=== PATIENT | female | born 1980 | race Caucasian/White ===

== ENCOUNTER 2016-12-04 13:33 | Emergency (ER) | payer OTHER ==
[~2016-12-04] VITALS: Ht 157.5 cm; Wt 63.0 kg
[~2016-12-04 13:33] MED LIST: A/B OTIC 54 MG/15 ML AD; ALPRAZOLAM1 MG PO; BENTYL20 MG PO; CARAFATE1 G1 PO; CLONAZEPAM1 MG PO; FLONASE120 SPRAY/ NASB; MEDROL DOSEPAK1 PAC PO; MULTI VITAMINS1 TAB PO; OMNICEF300 MG PO; PERCOCET 5-3251 EACH PO; PRILOSEC 20MG C20 MG PO; ROBITUSSIN W/CO10 ML PO; SEROQUEL (MONO200 MG PO; VITAMIN B12250 MCG PO; VITAMIN D31000 I1 PO; ZANTAC300 MG PO; ZOFRAN ODT4 M1 SL; ZOFRAN4 M1 SL
--- NOTE | 2016-12-04 14:03 | ED GI/GU/ABDOMINAL COMPLAINT ---
History of Present Illness General Chief Complaint: Abdominal Pain/Flank Pain Stated Complaint: ABD PAIN Source: patient, old records Exam Limitations: no limitations Vital Signs & Intake/Output Vital Signs & Intake/Output Vital Signs Date Time Temp Pulse Resp B/P Pulse O2 O2 Flow FiO2 Ox Delivery Rate 12/04 1643 98.7 81 16 120/76 99 Room Air 12/04 1521 Room Air 12/04 1343 98.3 90 20 149/88 98 Room Air Room Air Allergies Coded Allergies: NO KNOWN ALLERGIES (05/20/13) Reconcile Medications Hydrocodone/Acetaminophen ([place] 5-325 Tablet) 5 MG-325 MG TABLET 1-2 TAB PO Q4-6 PRN PRN PAIN Lamotrigine 100 MG TABLET 1 TAB PO DAILY MENTAL HEALTH (Reported) Lorazepam 1 MG TABLET 1 TAB PO BID ANXIETY (Reported) Ondansetron (Zofran Odt) 4 MG TAB.RAPDIS 1 TAB SL TID PRN NAUSEA Pantoprazole Sodium 40 MG TABLET.DR 1 TAB PO BID GI (Reported) Quetiapine Fumarate 200 MG TABLET 1 TAB PO QPM SLEEP (Reported) Triage Note: PT TO ED WITH C/O LOW ABD PAIN AND BILATERAL BACK PAIN, C/O DIARRHEA, NAUSEA AND VOMITING X 2 WEEKS, HX PANCREATITIS 6 MONTHS AGO, "FEELS THE EXACT SAME WAY". Triage Nurses Notes Reviewed? yes ? N Is pt currently ? No Onset: Gradual Duration: week(s): (2) Timing: remote history Quality/Severity: sharpness, vomiting Severity Numbers: 7 Location: left upper quadrant, right upper quadrant Radiation: back Activities at Onset: none Prior Abdominal Problems: similar symptoms Past Sexual History: Unobtainable at this time HPI: Patient is a 36-year-old female with history of pancreatitis of unknown origin presenting to the emergency department complaining of upper abdominal pain, bilateral back pain that's been going on for the past 2 weeks. She has had associated nausea vomiting diarrhea. Patient has been having 3-4 episodes of diarrhea daily. She just recently over the past couple of days noted some blood in the stool. Denies any urinary symptoms. Able to keep water down, otherwise if she tries to eat she vomits. No fevers or chills. No recent travel. Denies sick contacts. No blood in the vomit. She has been taking Advil over-the- counter with no relief. (DAIJA GRAYSON) Past History Travel History Traveled to [place] past 21 day No Medical History Any Pertinent Medical History? 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 No (DAIJA GRAYSON) Review of Systems Review of Systems Constitutional: Reports: no symptoms. Comments Review of systems: See HPI, All other systems negative. Constitutional, no chills fever or weight loss HEENT: No visual changes no sore throat no congestion Cardiovascular: No chest pain ,palpitation , orthopnea or ankle swelling Skin, no jaundice no rashes Respiratory: No dyspnea cough sputum or hemoptysis GI: POS N/V/D : No dysuria No hematuria Muscle skeletal: no back pain, no neck pain, Neurologic: No numbness no confusion Psych: No stress anxiety or depression,. Heme/endocrine: No bruising no bleeding no polyuria or polydipsia Immunology: No splenectomy or history of AIDS (DAIJA GRAYSON) Physical Exam Physical Exam General Appearance: well developed/nourished, no apparent distress, alert, awake , comfortable Gastrointestinal: normal bowel sounds, soft Comments: Well-developed well-nourished person in no acute distress HEENT: Pupils equally round and reactive to light and accommodation. Nose is atraumatic. External auditory canal and Tympanic membranes clear. Pharynx normal. No swelling or edema. Neck: Supple, no lymphadenopathy, normal range of motion without pain or tenderness. Moist oral mucosa. Back:CVA TENDERNESS BILATERALLY. Full range of motion Cardiovascular: Regular rate and rhythms no murmurs rubs or gallops, normal JVP Respiratory: Chest nontender. No respiratory distress.breath sounds clear to auscultation bilaterally Abdomen: Soft, VERY TENDER TO PALPATION OVER UPPER QUADRANTS BILATERALLY, nondistended, no appreciable organomegaly. Normal bowel sounds. No ascites Extremity: No edema. They are De La Vega sign. Neuro: Alert oriented x3, motor sensory normal, cranial nerves II through XII grossly intact. Skin: No appreciable rash on exposed skin, skin is SLIGHTLY DIAPHORETIC Psych: Mood and affect is normal, memory and judgment is normal. Core Measures ACS in differential dx? No Severe Sepsis Present: No Septic Shock Present: No (FORREST VACA,DAIJA) Progress Differential Diagnosis: diverticulitis, gastritis, hepatitis Plan of Care: Orders Procedure Date/time Status URINE 12/04 140 Complete URINALYSIS 12/04 140 Complete LIPASE 12/04 140 Complete COMPREHENSIVE METABOLIC PANEL 12/04 1402 Complete CBC WITHOUT DIFFERENTIAL 12/04 1402 Complete AMYLASE 12/04 140 Complete Laboratory Tests 12/04/16 1455: Anion Gap 10, Estimated GFR > 60, BUN/Creatinine Ratio 18.6, Glucose 94, Calcium 9.9, Total Bilirubin 0.8, AST 21, ALT 44, Alkaline Phosphatase 55, Total Protein 7.3, Albumin 4.8, Globulin 2.5, Albumin/Globulin Ratio 1.9, Amylase 86, Lipase 178, CBC w Diff NO MAN DIFF REQ, RBC 4.41, MCV 89.7, MCH 30.8, RDW 13.6, MPV 6.4 L, Gran % 67.5, Lymphocytes % 26.5, Monocytes % 5.4, Eosinophils % 0.1, Basophils % 0.5, Absolute Granulocytes 6.3, Absolute Lymphocytes 2.5, Absolute Monocytes 0.5, Absolute Eosinophils 0, Absolute Basophils 0, PUBS MCHC 34.4 12/04/16 1450: Urine Color YEL, Urine Clarity CLEAR, Urine pH 6.0, Ur Specific [place] 1.025, Urine Protein NEG, Urine Ketones NEG, Urine Nitrite NEG, Urine Bilirubin NEG, Urine Urobilinogen 0.2, Ur Leukocyte Esterase NEG, Ur Microscopic EXAM NOT REQUIRED, Urine Hemoglobin NEG, Urine Glucose NEG, Urine Test NEGATIVE Microbiology 12/04 1418 STOOL: Clostridium difficile Toxin A & B - CAN Cancelled: Cancelled via OE: Patient Refused Diagnostic Imaging: Viewed by Me: CT Scan. Discussed w/RAD: CT Scan. Radiology Impression: PRESENT AGE: 36 PATIENT ACCOUNT NO: [id number] : 81 LOCATION: [facility] ([place]) ORDERING PHYSICIAN: DAIJA VACA SERVICE DATE: EXAM TYPE: CAT - CT ABD & PELVIS W IV CONTRAST EXAMINATION: CT ABDOMEN AND PELVIS WITH CONTRAST CLINICAL INFORMATION: Rule out biliary process. Rule out pyelonephritis. Upper abdominal pain. COMPARISON: CT abdomen and pelvis dated 04/01/2016. TECHNIQUE: Multidetector volumetric imaging was performed of the abdomen and pelvis before and after the IV administration of 94 mL of Optiray 320 intravenous contrast. Sagittal and coronal reformatted images were obtained on the technologist's workstation. DLP: 269.77 mGy-cm FINDINGS: LUNG BASES: The visualized lung bases are unremarkable. LIVER, GALLBLADDER, AND BILIARY TREE: The liver is normal in size, shape, and attenuation. No focal hepatic lesion or biliary ductal dilatation is present. The gallbladder is unremarkable with no evidence of radiopaque gallstones, gallbladder wall thickening, or obvious pericholecystic inflammatory changes. PANCREAS: Unremarkable. SPLEEN: Unremarkable. ADRENAL GLANDS: Unremarkable. KIDNEYS AND URETERS: The kidneys are normal in size. Both kidneys contain subcentimeter low- attenuation lesions which are too small for definitive characterization, but likely represent cysts. No hydronephrosis, hydroureter, or calculi seen. No perinephric stranding. BLADDER: Unremarkable. GASTROINTESTINAL TRACT: The small and large bowel are unremarkable. The appendix is not seen. However, there are no inflammatory changes within the right lower quadrant to indicate acute appendicitis. ABDOMINAL WALL: No significant hernia is appreciated. LYMPH NODES: No lymphadenopathy. VASCULAR: Unremarkable. PELVIC VISCERA: No adnexal mass. OSSEOUS STRUCTURES: Unremarkable. IMPRESSION: No acute abnormality is seen within the abdomen or pelvis. DICTATED BY: EVA DYKES MD DATE/TIME DICTATED: 12/04/161653 ADMINISTRATIVE COORDINATOR:AZUL DATE/TIME TRANSCRIBED:12/04/161653 CONFIDENTIAL, DO NOT COPY WITHOUT APPROPRIATE AUTHORIZATION. Initial ED EKG: none Comments: Patient feeling improved after Toradol and IV fluids. Patient informed of all imaging results and laboratory results. No signs of UTI or pyelonephritis. Patient has been afebrile. This could be a virus or gastritis or stomach ulcer. Patient will follow with GI symptoms persist. Educated avoiding NSAIDs and taking omeprazole [id number]. Also given something to help with pain in the meantime. Patient nontoxic. Etiology of abdominal pain unclear at this time. Educated on use of clear liquid diet for the next 24-48 hours. She'll return for worsening symptoms or concerns. (DAIJA GRAYSON) Departure Departure Time of Disposition: 1725 Disposition: HOME OR SELF CARE Condition: Stable Clinical Impression Primary Impression: Back pain Qualifiers: Back pain location: back pain in unspecified location Chronicity: acute Back pain laterality: unspecified Qualified Code: M54.9 - Dorsalgia, unspecified Secondary Impressions: Abdominal pain Qualifiers: Abdominal location: unspecified location Qualified Code: R10.9 - Unspecified abdominal pain Diarrhea Qualifiers: Diarrhea type: unspecified type Qualified Code: R19.7 - Diarrhea, unspecified Referrals: JG CARMEN,NATALIIA Chahal (PCP/Family) Additional Instructions: Follow-up with your primary care physician call to make an appointment. Still drop off a stool sample at the lab, use a slip that was given to by her primary care physician. Increase fluids. Avoid heavy lifting. Take Zofran as prescribed for nausea. Take Vicodin as prescribed for pain. Return for worsening symptoms or concerns. Departure Forms: Customer Survey General Discharge Information Prescriptions: Current Visit Scripts Hydrocodone/Acetaminophen ([place] 5-325 Tablet) 1-2 TAB PO Q4-6 PRN PRN PAIN #10 TAB Ondansetron (Zofran Odt) 1 TAB SL TID PRN NAUSEA #8 TAB (DAIJA GRAYSON) PA/TALENT MANAGEMENT SPECIALIST Co-Sign Statement Statement: ED Attending supervision documentation- [] I saw and evaluated the patient. I have also reviewed all the pertinent lab results and diagnostic results. I agree with the findings and the plan of care as documented in the PA's/TALENT MANAGEMENT SPECIALIST's documentation. [X] I have reviewed the ED Record and agree with the PA's/TALENT MANAGEMENT SPECIALIST's documentation. [] Additions or exceptions (if any) to the PAs/TALENT MANAGEMENT SPECIALIST's note and plan are summarized below: [] (SIVAN CARMEN,LAUREN Cedeno)
[2016-12-04] MEDS ORDERED: PANTOPRAZOLE SO40 M1 PO (14:39)
[2016-12-04] MEDS ORDERED: LAMOTRIGINE100 M2 PO (14:39)
[2016-12-04] MEDS ORDERED: QUETIAPINE FUM200 M1 PO (14:40)
[2016-12-04] MEDS ORDERED: LORAZEPAM1 M1 PO (14:40)
[2016-12-04 15:03] LABS: ABSOLUTE BASOPHIL COUNT 0 /CUMM (0.0-0.2); ABSOLUTE EOSINOPHIL COUNT 0 /CUMM (0.0-0.7); ABSOLUTE GRANULOCYTE CT 6.3 /CUMM (1.4-6.5); ABSOLUTE LYMPH COUNT 2.5 /CUMM (1.2-3.4); ABSOLUTE MONOCYTE COUNT 0.5 /CUMM (0.10-0.60); BASOPHIL % 0.5 % (0.0-2.0); EOSINOPHIL % 0.1 % (0-5); GRANULOCYTE % 67.5 % (42.2-75.2); HEMATOCRIT 39.6 % (37-47); MEAN CORPUSCULAR HGB 30.8 PG (27.0-31.0); MEAN CORPUSCULAR HGB CONC 34.4 G/DL (33.0-37.0); MEAN CORPUSCULAR VOLUME 89.7 FL (81.0-99.0); MEAN PLATELET VOLUME 6.4 FL (7.4-10.4); PLATELET COUNT 388 /CUMM (130-400); RBC DISTRIBUTION WIDTH 13.6 % (11.5-14.5); RED BLOOD CELL CT 4.41 /CUMM (4.20-5.40); WHITE BLOOD CELL COUNT 9.4 /CUMM (4.8-10.8)
[2016-12-04 16:43] VITALS: BP 120/76
--- NOTE | 2016-12-04 17:08 | CT SCAN REPORT ---
EXAMINATION: CT ABDOMEN AND PELVIS WITH CONTRAST CLINICAL INFORMATION: Rule out biliary process. Rule out pyelonephritis. Upper abdominal pain. COMPARISON: CT abdomen and pelvis dated 04/01/2016. TECHNIQUE: Multidetector volumetric imaging was performed of the abdomen and pelvis before and after the IV administration of 94 mL of Optiray 320 intravenous contrast. Sagittal and coronal reformatted images were obtained on the technologist's workstation. DLP: 269.77 mGy-cm FINDINGS: LUNG BASES: The visualized lung bases are unremarkable. LIVER, GALLBLADDER, AND BILIARY TREE: The liver is normal in size, shape, and attenuation. No focal hepatic lesion or biliary ductal dilatation is present. The gallbladder is unremarkable with no evidence of radiopaque gallstones, gallbladder wall thickening, or obvious pericholecystic inflammatory changes. PANCREAS: Unremarkable. SPLEEN: Unremarkable. ADRENAL GLANDS: Unremarkable. KIDNEYS AND URETERS: The kidneys are normal in size. Both kidneys contain subcentimeter low-attenuation lesions which are too small for definitive characterization, but likely represent cysts. No hydronephrosis, hydroureter, or calculi seen. No perinephric stranding. BLADDER: Unremarkable. GASTROINTESTINAL TRACT: The small and large bowel are unremarkable. The appendix is not seen. However, there are no inflammatory changes within the right lower quadrant to indicate acute appendicitis. ABDOMINAL WALL: No significant hernia is appreciated. LYMPH NODES: No lymphadenopathy. VASCULAR: Unremarkable. PELVIC VISCERA: No adnexal mass. OSSEOUS STRUCTURES: Unremarkable. IMPRESSION: No acute abnormality is seen within the abdomen or pelvis.
[2016-12-04] MEDS ORDERED: NORCO 5-325 TA1 EACH PO (17:28)
[2016-12-04] MEDS ORDERED: ZOFRAN ODT4 M1 SL (17:28)
== END 2016-12-04 17:36 ==
LOC: ERH 13:33
PROVIDERS: Physician Assistant
DX: M54.9 Dorsalgia, unspecified (principal); R10.11 Right upper quadrant pain; R10.12 Left upper quadrant pain; R19.7 Diarrhea, unspecified
CPT/HCPCS: 74177; 81003; 81025; 87045; 96361; 96374; 96375; J1885; J2405; J2765

== ENCOUNTER 2017-10-02 | Emergency (ER) | payer OTHER ==
[~2017-10-02] MED LIST changes: +IMODIUM A-D2 M1 PO; +LAMOTRIGINE100 M2 PO; +LORAZEPAM1 M1 PO; +Magic mouthwash PO; +NORCO 5-325 TA1 EACH PO; +PANTOPRAZOLE SO40 M1 PO; +QUETIAPINE FUM200 M1 PO; +REGLAN10 M1 PO
[2017-10-02 00:59] VITALS: BP 135/89
[2017-10-02] MEDS ORDERED: PEPCID20 M1 PO (01:10)
--- NOTE | 2017-10-02 01:10 | ED GI/GU/ABDOMINAL COMPLAINT ---
History of Present Illness General Chief Complaint: General Adult Stated Complaint: COUGH, HEART BURN Source: patient, old records Exam Limitations: no limitations Vital Signs & Intake/Output Vital Signs & Intake/Output Vital Signs Date Time Temp Pulse Resp B/P B/P Pulse O2 O2 Flow FiO2 Mean Ox Delivery Rate 10/02 0059 98.5 67 20 135/89 Allergies Coded Allergies: No Known Allergies (09/06/17) Reconcile Medications Famotidine (Pepcid) 20 MG TABLET 1 TAB PO BID GASTRIITS Loperamide HCl (Imodium A-D) 2 MG TABLET 0 PO SEE ADMIN CRITERIA PRN diarrhea 1 tab after each loose stool up to 7 per day Lorazepam 1 MG TABLET 1 TAB PO BID ANXIETY (Reported) [Magic mouthwash] 10 ML PO Q4P PRN throat pain 1:1:1 lidocaine:benadryl;maalox Metoclopramide HCl (Reglan) 10 MG TABLET 1 TAB PO 4 TIMES/DAY PRN nausea/ vomiting 30 minutes before meals and bedtime Ondansetron (Zofran Odt) 4 MG TAB.RAPDIS 1 TAB SL TID PRN nausea Oxycodone HCl/Acetaminophen (Percocet 5-325 MG Tablet) 5 MG-325 MG TABLET 1 TAB PO BID BREAKTHROUGH PAIN Triage Note: PER PT SEEN HERE FOR THROAT PROBLEMS AND WENT TO HAVE AN MRI BUT CANNOT GET RESULTS CONT WITH CHEST PAIN,CT SHOWED AN ISSUE WITH MY MEDIASTIMUN AWAKE EVERY AM WITH HEARTBURN Triage Nurses Notes Reviewed? yes ? N Is pt currently ? No HPI: Patient presents the emergency room with continued complaints of heartburn that wakes her up every night. Patient states the pain gets so bad and she throws up. Patient also states that she has been having intermittent diarrhea. Patient has been taking the medications prescribed to her but have not been helping. Patient has been seen by Dr. Tucker in the past and had a colonoscopy as well as an endoscopy 2 years ago. Patient also recently had an MRI or something abnormal on her sternum. Patient states that she has been: Her doctor for 3 days but has not been a call back to discuss the results yet. She describes the pain as a burning sensation which is substernal. It radiates up towards her throat. His worse with laying down. There are no aggravating or mitigating factors. One is present the pain is 10 out of 10. Past History Travel History Traveled to [place] past 21 day No Medical History Any Pertinent Medical History? 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 No Review of Systems Review of Systems Constitutional: Reports: no symptoms. EENTM: Reports: no symptoms. Respiratory: Reports: no symptoms. Cardiovascular: Reports: no symptoms. GI: Reports: see HPI, diarrhea, vomiting. Genitourinary: Reports: no symptoms. Musculoskeletal: Reports: no symptoms. Skin: Reports: no symptoms. Neurological/Psychological: Reports: no symptoms. Hematologic/Endocrine: Reports: no symptoms. Immunologic/Allergic: Reports: no symptoms. All Other Systems: Reviewed and Negative Physical Exam Physical Exam General Appearance: well developed/nourished, alert, awake, anxious, mild distress Head: atraumatic, normal appearance Eyes: Bilateral: PERRL, EOMI. Ears, Nose, Throat, Mouth: hearing grossly normal, moist mucous membrane Neck: normal inspection, supple, full range of motion Respiratory: normal breath sounds, chest non-tender, no respiratory distress, lungs clear Cardiovascular: regular rate/rhythm, normal peripheral pulses Gastrointestinal: normal bowel sounds, soft, non-tender, no organomegaly Back: normal inspection, normal range of motion Extremities: normal range of motion Neurologic/Psych: no motor/sensory deficits, awake, alert, oriented x 3, normal gait, normal mood/affect Skin: intact, normal color, warm/dry Core Measures ACS in differential dx? No Sepsis Present: No Sepsis Focused Exam Completed? No Progress Differential Diagnosis: esophageal varices, gastritis, hepatitis, pancreatitis Plan of Care: GI FOLLOW UP Initial ED EKG: none Comments: MRI RESULTS DISCUSSED WITH PT. Departure Departure Disposition: HOME OR SELF CARE Condition: Stable Clinical Impression Primary Impression: Reflux gastritis Referrals: Conchis CARMEN,Luis A Aviles MD,Chantel Chahal (PCP/Family) Additional Instructions: FOLLOW UP WITH DR. GORDON TAKE PEPCID TWICE A DAY RETURN FOR ANY CONCERNS Departure Forms: Customer Survey General Discharge Information Prescriptions: Current Visit Scripts Famotidine (Pepcid) 1 TAB PO BID #60 TAB
== END 2017-10-02 01:46 ==
LOC: ERH
DX: K29.70 Gastritis, unspecified, without bleeding (principal)

== ENCOUNTER 2017-12-17 06:29 | Emergency (ER) | payer OTHER ==
[~2017-12-17] VITALS: Ht 157.5 cm; Wt 61.2 kg
[~2017-12-17 06:29] MED LIST changes: +PEPCID20 M1 PO
[2017-12-17 06:41] VITALS: BP 112/76
--- NOTE | 2017-12-17 06:45 | ED GENERAL ADULT ---
History of Present Illness General Chief Complaint: General Adult Stated Complaint: ?BRONCHITIS Source: patient Exam Limitations: no limitations Vital Signs & Intake/Output Vital Signs & Intake/Output Vital Signs Date Time Temp Pulse Resp B/P B/P Pulse O2 O2 Flow FiO2 Mean Ox Delivery Rate 12/17 0645 100 Room Air 12/17 0641 98.5 98 18 112/76 100 Room Air Allergies Coded Allergies: No Known Allergies (09/06/17) Reconcile Medications Amoxicillin/Potassium Clav (Augmentin 875-125 Tablet) 875 MG-125 MG TABLET 1 TAB PO BID bronchitis Budesonide/Formoterol Fumarate (Symbicort 160-4.5 Mcg Inhaler) 160 MCG-4.5 MCG/ ACTUATION HFA.AER.AD 2 PUF INH BID asthma Famotidine (Pepcid) 20 MG TABLET 1 TAB PO BID GASTRIITS Loperamide HCl (Imodium A-D) 2 MG TABLET 0 PO SEE ADMIN CRITERIA PRN diarrhea 1 tab after each loose stool up to 7 per day Lorazepam 1 MG TABLET 1 TAB PO BID ANXIETY (Reported) [Magic mouthwash] 10 ML PO Q4P PRN throat pain 1:1:1 lidocaine:benadryl;maalox Metoclopramide HCl (Reglan) 10 MG TABLET 1 TAB PO 4 TIMES/DAY PRN nausea/ vomiting 30 minutes before meals and bedtime Ondansetron (Zofran Odt) 4 MG TAB.RAPDIS 1 TAB SL TID PRN nausea Oxycodone HCl/Acetaminophen (Percocet 5-325 MG Tablet) 5 MG-325 MG TABLET 1 TAB PO BID BREAKTHROUGH PAIN Prednisolone 15 MG/5 ML SOLUTION 10 ML PO QDAY ASTHMA/bronchitis Triage Note: PT TO ED ASKING ABOUT TEST RESULTS FROM ED VISIT YESTERDAY. "WHILE I'M HERE, I THINK I HAVE BRONCHITIS AND I WANT TO GET THAT CHECKED OUT" Triage Nurses Notes Reviewed? yes Onset: Gradual Duration: day(s): Timing: recent history Injury Environment: home Severity: mild Modifying Factors: Improves With: rest. Associated Symptoms: cough : No Patient currently breastfeeds: No HPI: 37 yo woman seen last night for evaluation of a fall and then walked out. She re-presents seeking results and also presenting with a cough. She notes that since she fell last week, she has been experiencing a cough, with watery phlegm, mild wheezing. She is a current smoker. She denies fever, chills, chest pain. She is otherwise well. Past History Travel History Traveled to [place] past 21 day No Medical History Any Pertinent Medical History? 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 No Review of Systems Review of Systems Constitutional: Reports: no symptoms. EENTM: Reports: no symptoms. Respiratory: Reports: no symptoms. Cardiovascular: Reports: no symptoms. GI: Reports: no symptoms. Genitourinary: Reports: no symptoms. Musculoskeletal: Reports: no symptoms. Skin: Reports: no symptoms. Neurological/Psychological: Reports: no symptoms. Hematologic/Endocrine: Reports: no symptoms. Immunologic/Allergic: Reports: no symptoms. All Other Systems: Reviewed and Negative Physical Exam Physical Exam General Appearance: well developed/nourished, no apparent distress Head: atraumatic, normal appearance Eyes: Bilateral: normal appearance. Ears, Nose, Throat: normal pharynx, normal ENT inspection Neck: normal inspection, supple, full range of motion Respiratory: chest non-tender, no respiratory distress, quiet respiration, mild bilateraly rhonchi Cardiovascular: regular rate/rhythm Gastrointestinal: normal bowel sounds, soft, non-tender Back: normal inspection, normal range of motion Extremities: normal inspection Neurologic/Psych: no motor/sensory deficits, awake, alert, oriented x 3 Skin: intact, normal color Core Measures ACS in differential dx? No CVA/TIA Diagnosis: No Sepsis Present: No Sepsis Focused Exam Completed? No Progress Differential Diagnoses I considered the following diagnoses in my evaluation of the patient: bronchitis vs other. Plan of Care: wrote for steroids/abx/symbicort (per her request) Diagnostic Imaging: Viewed by Me: Radiology Read, CT Scan. Discussed w/RAD: Radiology Read, CT Scan. Radiology Impression: PATIENT: ASHANTI DODD PRESENT AGE: 37 PATIENT ACCOUNT NO: [id number] : 81 LOCATION: ER ORDERING PHYSICIAN: Trista VACA SERVICE DATE: 12/16/17 EXAM TYPE: CAT - CT CERV SPINE WO IV CONTRAST; CT HEAD WO IV CONTRAST EXAMINATION: CT HEAD WITHOUT CONTRAST CT CERVICAL SPINE WITHOUT CONTRAST CLINICAL INFORMATION: Status post fall, head injury. COMPARISON: None TECHNIQUE: Axial imaging of the head without contrast. Axial imaging of the spine. Sagittal and coronal reconstructions. FINDINGS: CT HEAD: There is no evidence of acute intracranial hemorrhage or territorial infarction. No abnormal mass effect or midline shift is seen. Jekz-ol-eoncj matter differentiation is well preserved. No extra-axial fluid collections are identified. No significant volume loss. No hydrocephalus. There is no abnormal attenuation within the brain parenchyma. The osseous structures and soft tissues are normal. The mastoid air cells and visualized portions of the paranasal sinuses are well aerated. CT CERVICAL SPINE: There is straightening of the cervical curvature. Normal alignment without subluxation. Mild disc degenerative changes at C5-C6. There is disc height narrowing, endplate irregularity and spurring at C6-C7, from pchcxqau-ud-cogrrp changes. There is slight concavity of the superior endplate of C7, with underlying sclerosis, correlating with a chronic process. No acute fracture is identified. Lung apices are clear. Visualized thyroid gland appears unremarkable. IMPRESSION : 1. No CT evidence of acute intracranial pathology. 2. No CT evidence of acute fracture of the cervical spine. 3. Multilevel disc degenerative changes, as detailed above. DICTATED BY: Eugene Castrejon MD DATE/TIME DICTATED:12/16/172315 SERVICE COUNSELOR:AZUL DATE/TIME TRANSCRIBED:12/16/172315 CONFIDENTIAL, DO NOT COPY WITHOUT APPROPRIATE AUTHORIZATION. <Electronically signed in Other Vendor System> SIGNED BY: Eugene Castrejon MD 12/17/17 0012 , PATIENT: ASHANTI DODD PRESENT AGE: 37 PATIENT ACCOUNT NO: [id number] : 81 LOCATION: [facility] ORDERING PHYSICIAN: Trista VACA SERVICE DATE: 12/16/17 EXAM TYPE: CAT - CT CHEST WO IV CONTRAST EXAMINATION: CT CHEST WITHOUT CONTRAST CLINICAL INFORMATION: Status post fall. Rule out rib fracture. Chest pain. Hemoptysis. COMPARISON: CT neck TECHNIQUE: Multidetector volumetric CT imaging of the chest was done. Axial MIP volume rendering provided. Sagittal and coronal reformatted images were obtained. FINDINGS: LUNGS: Trachea and central airway are clear. Confluent airspace opacity in the right lung base, from atelectasis or infiltrate. Linear and patchy opacities in the medial and inferior right middle lobe, medial and inferior lingula, medial aspect of the left upper lobe. There is peribronchial thickening in the right middle lobe. This probably reflects atelectasis or scarring. Patchy ground glass opacities in left lower lobe. Scattered nonspecific patchy pleural-based opacity in the right lower lobe. Focal groundglass opacity in the peripheral aspect of the right upper lobe. Small infiltrates are difficult to exclude. No evidence of pneumothorax.. MEDIASTINUM: Visualized thyroid gland appears unremarkable. No pathologically enlarged lymph nodes are seen in the mediastinum or kalyani. Normal caliber aorta. Normal heart size. No pericardial effusion. Esophagus is decompressed. Redemonstrated is nonspecific anterior mediastinal soft tissue, as seen on the prior CT of 2016. This was further characterized on the MRI of 09/27/2017., PLEURA: No pleural effusion. AXILLA: No axillary lymphadenopathy. Bilateral breast implants are present.. UPPER ABDOMEN: Liver, gallbladder, spleen, adrenal glands, kidneys appear unremarkable. OSSEOUS STRUCTURES: No acute rib fractures identified. No acute fractures otherwise identified. IMPRESSION: 1. Nonspecific anterior mediastinal soft tissue is redemonstrated, also seen on the prior study neck CT of 09/01/2017. This has been further characterized on the MRI chest of 2017. 2. Multifocal linear and patchy airspace opacity in bilateral hemithoraces. This may be related to atelectasis/scarring. Focal ground glass opacity seen in the peripheral aspect of the right upper lobe. Patchy groundglass opacities in the left lower lobe This is nonspecific. In the clinical setting of hemoptysis, recommend follow-up imaging in 3-6 months months for reassessment. 3. No evidence of pneumothorax. 4. No acute fractures identified. DICTATED BY: Eugene Castrejon MD DATE/TIME DICTATED:12/16/172315 SERVICE COUNSELOR:AZUL DATE/TIME TRANSCRIBED:12/16/172315 CONFIDENTIAL, DO NOT COPY WITHOUT APPROPRIATE AUTHORIZATION. <Electronically signed in Other Vendor System> SIGNED BY: Eugene Castrejon MD 12/17/17 0012, PATIENT: ASHANTI DODD PRESENT AGE: 37 PATIENT ACCOUNT NO: [id number] : 81 LOCATION: ER ORDERING PHYSICIAN: Trista VACA SERVICE DATE: 12/16/17 EXAM TYPE: RAD - XRY-ELBOW AP & LATERAL, LEFT EXAMINATION: XR ELBOW, LEFT CLINICAL INFORMATION: Fall, rule out fracture. COMPARISON: None TECHNIQUE: Four views of the left elbow. FINDINGS: The bones and soft tissues appear unremarkable. No fracture or joint effusion. Alignment is anatomic. Joint spaces are maintained. IMPRESSION: No evidence of acute fracture. DICTATED BY: Eugene Castrejon MD DATE/TIME DICTATED:12/16/172309 SERVICE COUNSELOR:AZUL DATE/TIME TRANSCRIBED:12/16/172309 CONFIDENTIAL, DO NOT COPY WITHOUT APPROPRIATE AUTHORIZATION. <Electronically signed in Other Vendor System> SIGNED BY: Eugene Castrejon MD 12/16/17 233, PATIENT: ASHANTI ODDD PRESENT AGE: 37 PATIENT ACCOUNT NO: [id number] : 81 LOCATION: [facility] ORDERING PHYSICIAN: Trista VACA SERVICE DATE: 12/16/17 EXAM TYPE: RAD - XRY-HIP 2-3 VIEWS, LEFT EXAMINATION : XR HIP, LEFT CLINICAL INFORMATION: Left hip tenderness. COMPARISON: None TECHNIQUE: Two views of the left hip. FINDINGS: Normal alignment of the left hip joint. Joint space is maintained. No visible acute fracture or dislocation. Visualized left hemipelvis appears intact. Left SI joint appears intact. Adjacent soft tissue is unremarkable. IMPRESSION: No radiographic evidence of discrete acute fracture. DICTATED BY: Eugene Castrejon MD DATE/TIME DICTATED:10/04 SERVICE COUNSELOR:AZUL DATE/TIME TRANSCRIBED:12/16/172307 CONFIDENTIAL, DO NOT COPY WITHOUT APPROPRIATE AUTHORIZATION. <Electronically signed in Other Vendor System> SIGNED BY: Eugene Castrejon MD 12/16/172315 Initial ED EKG: none Departure Departure Disposition: HOME OR SELF CARE Condition: Stable Clinical Impression Primary Impression: Bronchitis Referrals: Traci CARMEN,Chantel Chahal (PCP/Family) Departure Forms: Customer Survey General Discharge Information Prescriptions: Current Visit Scripts Budesonide/Formoterol Fumarate (Symbicort 160-4.5 Mcg Inhaler) 2 PUF INH BID #1 INHAL Prednisolone 10 ML PO QDAY #50 ML Amoxicillin/Potassium Clav (Augmentin 875-125 Tablet) 1 TAB PO BID #20 TAB Critical Care Note Critical Care Note Critical Care Time: non-applicable
[2017-12-17] MEDS ORDERED: AUGMENTIN 875-1 EACH PO (06:49)
[2017-12-17] MEDS ORDERED: PREDNISOLO15 MG/5 M4 PO (06:49)
[2017-12-17] MEDS ORDERED: SYMBICORT 16010.2 GM INH (06:49)
== END 2017-12-17 06:54 ==
LOC: ERH 06:29
DX: J40 Bronchitis, not specified as acute or chronic (principal); Z72.0 Tobacco use